=== PATIENT | female | born 1975 | race Caucasian/White ===

== ENCOUNTER 2025-02-02 10:11 | Outpatient (CLI) | payer BC ==
[2025-02-02 11:18] LABS: Hematocrit 38.1 % (34.9-44.5); Hemoglobin 12.0 g/dL (12.0-15.5); Mean Corpuscular Hemoglobin 27.5 pg (27.0-33.0); Mean Corpuscular Volume 87.2 fL (81.6-98.3); Platelet Count 223 10x3/uL (150-450); Red Blood Cell (RBC) Count 4.37 10x6/uL (3.90-5.03); White Blood Cell (WBC) Count 7.92 10x3/uL (3.5-10.5)
[2025-02-02 11:47] LABS: Anion Gap 12 mmol/L (10-20); BUN (Urea Nitrogen) 11 mg/dL (9.8-20.1); Calc. Creatinine Clearance 0 mL/min (70-130); Calcium 9.0 mg/dL (7.8-10.44); Carbon Dioxide 26 mmol/L (22-29); Chloride 106 mmol/L (98-107); Glucose 89 mg/dL (70-105); Potassium 4.4 mmol/L (3.5-5.1); Sodium 140 mmol/L (136-145)
== END 2025-02-02 10:12 | disposition home or self-care (01) ==
LOC: CSHLAB 10:11
PROVIDERS: ATTEND Surgery
DX: Z01.818 Encounter for other preprocedural examination (principal); C56.2 Malignant neoplasm of left ovary
CPT/HCPCS: 80048; 85027; 93005; 93010

== ENCOUNTER 2025-02-03 07:25 | Day surgery (SDC) | payer BC ==
[2025-02-02 10:22] VITALS: BMI 47.4
[2025-02-03] MEDS ORDERED: Bupivacaine HCl 0.5%/Epinephrine 1:200,000/PF 30 ml Vial ONE (08:54)
[2025-02-03] MEDS ORDERED: CEFAZOLIN 2 GM VIAL ONE (09:36)
[2025-02-03] MEDS ORDERED: PROPOFOL 20 ML ONE (09:40)
[2025-02-03] MEDS ORDERED: Lidocaine 1% PF 5 ML VIAL ONE (09:41)
[2025-02-03] MEDS ORDERED: Bupivacaine/Epinephrine 0.25% 30 ML VIAL ONE (09:58)
[2025-02-03] MEDS ORDERED: Ondansetron PF 4 MG/2 ML Vial ONE (09:58)
== END 2025-02-03 11:50 | disposition home or self-care (01) ==
LOC: CSHSDC 07:25
PROVIDERS: ATTEND Surgery
PROC: 0JH60WZ Insertion of Totally Implantable Vascular Access Device into Chest Subcutaneous Tissue and Fascia, Open Approach (ICD-10-PCS; principal; 2025-02-03)
DX: C56.2 Malignant neoplasm of left ovary (principal); I10 Essential (primary) hypertension; K21.9 Gastro-esophageal reflux disease without esophagitis; G47.33 Obstructive sleep apnea (adult) (pediatric); E66.01 Morbid (severe) obesity due to excess calories; Z68.42 Body mass index [BMI] 45.0-49.9, adult; Z90.710 Acquired absence of both cervix and uterus; Z79.899 Other long term (current) drug therapy
CPT/HCPCS: 71045; A6258; C1788; J1100; J1642; J2704